=== PATIENT | male | born 1950 | race Caucasian/White ===

== ENCOUNTER → 2019-07-28 14:55 | Outpatient (BNVA) | payer MEDICARE, OTHER, SELFPAY | PROVIDERS: Family Provider Family Medicine; PCP Family Medicine; Visit Provider Internal Medicine Rheumatology | DX: M19.90 Unspecified osteoarthritis, unspecified site (principal); Z79.899 Other long term (current) drug therapy; Z11.59 Encounter for screening for other viral diseases; Z11.1 Encounter for screening for respiratory tuberculosis; M06.9 Rheumatoid arthritis, unspecified; Z79.52 Long term (current) use of systemic steroids; Z71.89 Other specified counseling | CPT/HCPCS: 36415; 80076; 82565; 84550; 85025; 85651; 86140; 86431; 86480; 86704; 86803; 86812; 87340; 99204 ==

== ENCOUNTER → 2019-07-28 16:20 | Outpatient (BNVA) | payer MEDICARE, OTHER, SELFPAY | PROVIDERS: Family Provider Family Medicine; PCP Family Medicine; Visit Provider Internal Medicine Rheumatology | DX: Z79.899 Other long term (current) drug therapy (principal); Z11.59 Encounter for screening for other viral diseases; M19.90 Unspecified osteoarthritis, unspecified site; Z71.89 Other specified counseling | CPT/HCPCS: 85025 ==

== ENCOUNTER 2019-07-29 12:59 | Outpatient (CLI) | payer MEDICARE, OTHER, SELFPAY ==
--- NOTE | 2019-07-29 13:05 | XR_ITS ---
WS: [id number] CHEST 2 VIEWS HISTORY: inflammatory arthritis COMPARISON: None available. Lungs: Clear with no abnormality. No pleural effusion or pneumothorax. Cardiac size: Normal. Mediastinum/Aorta: Normal mediastinum. Bones: Normal. XR/XR chest 2V* [id number] IMPRESSION: Normal chest.
--- NOTE | 2019-07-29 13:05 | XR_ITS ---
WS: [id number] LEFT FOOT: 3 VIEW(S) TECHNIQUE: PA, oblique and lateral. HISTORY: inflammatory arthritis COMPARISON: 10/20/2011 No acute fracture or dislocation. Mild narrowing of the first metatarsophalangeal joint. Erosions which are partially well-corticated a long the medial first metatarsal head. Small amount of adjacent overlying soft tissue. Erosions are n ew since the prior study. Additional erosion along the joint line of the first metatarsal head withou t being well-corticated. No additional metatarsal head erosions. Mild degenerative changes at the mid foot. Enthesopathy at the Achilles tendon. No soft tissue abnormality or bone destruction. XR/XR foot LT min 3V* [id number] IMPRESSION: 1. Medial first metatarsal head erosions. Consider gout. 2. Additional erosion along the joint line first metatarsal tarsal head may be rheumatoid arthritis.
--- NOTE | 2019-07-29 13:05 | XR_ITS ---
WS: [id number] RIGHT FOOT: 3 VIEW(S) TECHNIQUE: PA, oblique and lateral. HISTORY: inflammatory arthritis COMPARISON: None available. Mild narrowing of the first interphalangeal joint. Suspect very small early erosions along the joint surface of the first metatarsal head. Mild narrowing in the tarsal rows. Enthesopathy at the Achilles tendon. XR/XR foot RT min 3V* [id number] IMPRESSION: 1. Very tiny early erosions along the first metatarsal head. Favor inflammator y arthritis. 2. Mild degenerative changes in the tarsal rows.
--- NOTE | 2019-07-29 13:05 | XR_ITS ---
WS: [id number] LEFT HAND: 3 VIEW(S) TECHNIQUE: PA, oblique and lateral. HISTORY: inflammatory arthritis COMPARISON: None available. Diffuse interphalangeal joint space narrowing. Most significant changes involving the fifth PIP joint and the first IP joint. Bony hypertrophy with soft tissue thickening. There also may be some periost itis along with erosions which can be seen with psoriatic arthritis. No erosions at the metacarpal he ads. Mild narrowing of the first carpometacarpal joint. XR/XR hand LT min 3V* [id number] IMPRESSION: 1. Diffuse IP joint space narrowing, most significant at the fifth IP joint an d the first IP joint. There is adjacent periostitis along with soft tissue hype rtrophy. Periostitis can be seen with psoriatic arthritis. 2. Progression of IP joint degenerative changes.
--- NOTE | 2019-07-29 13:05 | XR_ITS ---
WS: [id number] RIGHT HAND: 3 VIEW(S) TECHNIQUE: PA, oblique and lateral. HISTORY: inflammatory arthritis COMPARISON: 10/06/2014 Diffuse narrowing of the interphalangeal joint spaces. Soft tissue swelling with erosions on both sides of the second PIP joint. There is mineralization in the soft tissues. Some of the erosions are well-corticated. Smaller erosions and joint space narrowin g with soft tissue edema at this fourth PIP joint. Advanced degenerative changes at the first carpometacarpal joint. No ulnar styloid erosion. XR/XR hand RT min 3V* [id number] IMPRESSION: 1. Most significant changes involving the second and fourth PIP joints. Soft t issue swelling with erosions and mineralization. Due to the demineralization an d the soft tissue changes consider gout as a possible etiology. Inflammatory ar thritis also within the differential. 2. Diffuse interphalangeal joint space narrowing and small erosions. Osteoarthritis first carpometacarpal joint.
== END 2019-07-29 13:00 | disposition home or self-care (01) ==
LOC: RADOUTREAD 13:04
PROVIDERS: Family Provider Family Medicine; PCP Family Medicine; Visit Provider Internal Medicine Rheumatology
DX: M79.89 Other specified soft tissue disorders (principal); M85.841 Other specified disorders of bone density and structure, right hand; M19.041 Primary osteoarthritis, right hand; M85.872 Other specified disorders of bone density and structure, left ankle and foot; M85.871 Other specified disorders of bone density and structure, right ankle and foot
CPT/HCPCS: 71046; 73130; 73630

== ENCOUNTER → 2019-08-05 15:52 | Outpatient (BNVA) | payer MEDICARE, OTHER, SELFPAY | PROVIDERS: Family Provider Family Medicine; PCP Family Medicine; Visit Provider Internal Medicine Rheumatology | DX: M1A.9XX1 Chronic gout, unspecified, with tophus (tophi) (principal); Z79.899 Other long term (current) drug therapy; D64.9 Anemia, unspecified | CPT/HCPCS: 99214 ==

== ENCOUNTER 2020-11-16 07:48 | Outpatient (RCR) | payer MEDICARE, OTHER, SELFPAY ==
[2020-11-15 13:25] LABS: Basophils # 0.1 10^3/uL (0.0-0.1); Basophils % 0.9 %; Eosinophils # 0.3 10^3/uL (0.0-0.8); Eosinophils % 3.3 %; Hematocrit 24.6 % (42.0-52.0); Hemoglobin 6.9 g/dL (11.7-16.6); Lymphocytes # 1.3 10^3/uL (0.8-4.8); Lymphocytes % 16.6 %; Mean Corpuscular Hemoglobin 18.6 pg (28.0-34.0); Mean Corpuscular Volume 66.5 fL (80-94); Mean Platelet Volume 8.8 fL (7.4-10.4); Monocytes # 1.1 10^3/uL (0.2-0.9); Monocytes % 14.2 %; Neutrophils # 4.84 10^3/uL (1.8-7.7); Neutrophils % 64.6 %; Nucleated Red Blood Cells % 0 %; Platelet Count 383 10^3/cmm (130-400); Red Cell Distribution Width 19.3 % (12.1-15.1); White Blood Count 7.5 10^3/uL (4.0-10.0)
[2020-11-15 13:52] LABS: Alanine Aminotransferase 7 U/L (0-41); Alkaline Phosphatase 50 IU/L (40-130); Anion Gap 14.3 (5-19); Aspartate Amino Transferase 12 U/L (0-40); Blood Urea Nitrogen 13 mg/dL (8-23); Calcium 8.9 mg/dL (8.5-10.5); Carbon Dioxide 24 mmol/L (22-29); Chloride 103 mmol/L (98-107); Globulin 2.7 g/dL (1.3-4.6); Glucose 94 mg/dL (65-115); Osmolality Calculated 286 mOsm/kg (285-295); Potassium 3.3 mmol/L (3.5-5.1); Sodium 138 mmol/L (136-145); Total Bilirubin 0.5 mg/dL (0.15-1.2); Total Protein 6.7 g/dL (6.6-8.7)
[2020-11-15 16:54] LABS: Ferritin 13 ng/mL (30-400); Iron 18 ug/dL (59-158); Percent Saturation 5.2 % (20-50); Total Iron Binding Capacity 344 mcg/dl; Unsaturated Iron Binding 326 ug/dL (112-347)
[2020-11-16 08:33] LABS: Basophils # 0.1 10^3/uL (0.0-0.1); Basophils % 1.1 %; Eosinophils # 0.3 10^3/uL (0.0-0.8); Eosinophils % 4.8 %; Hematocrit 25.5 % (42.0-52.0); Hemoglobin 7.1 g/dL (11.7-16.6); Lymphocytes % 15.9 %; Mean Corpuscular HGB Conc 27.8 g/dL (30.0-36.0); Mean Corpuscular Hemoglobin 18.4 pg (28.0-34.0); Mean Corpuscular Volume 66.1 fL (80-94); Mean Platelet Volume 9.3 fL (7.4-10.4); Monocytes # 0.6 10^3/uL (0.2-0.9); Monocytes % 9.8 %; Neutrophils # 4.22 10^3/uL (1.8-7.7); Neutrophils % 67.9 %; Nucleated Red Blood Cells % 0 %; Platelet Count 409 10^3/cmm (130-400); Red Blood Count 3.86 10^6/uL (4.1-5.3); Red Cell Distribution Width 19.2 % (12.1-15.1); White Blood Count 6.2 10^3/uL (4.0-10.0)
[2020-11-16 08:51] LABS: Alanine Aminotransferase 9 U/L (0-41); Alkaline Phosphatase 56 IU/L (40-130); Anion Gap 15.3 (5-19); Aspartate Amino Transferase 13 U/L (0-40); Blood Urea Nitrogen 12 mg/dL (8-23); Calcium 8.9 mg/dL (8.5-10.5); Carbon Dioxide 24 mmol/L (22-29); Chloride 102 mmol/L (98-107); Globulin 2.7 g/dL (1.3-4.6); Glucose 145 mg/dL (65-115); Osmolality Calculated 288 mOsm/kg (285-295); Potassium 3.3 mmol/L (3.5-5.1); Sodium 138 mmol/L (136-145); Total Bilirubin 0.3 mg/dL (0.15-1.2); Total Protein 6.7 g/dL (6.6-8.7)
[2020-11-16] MEDS: diphenhydrAMINE 25 mg Capsule PO (10:30)
[2020-11-16] MEDS: acetaminophen 325 mg Tablet 650 MG PO (10:30)
[2020-11-16] MEDS: sodium chloride 0.9% 250 ML 999 ML IV (10:30)
[2020-11-16 13:30] VITALS: BP 123/60; PULSE 53; RESP 18; TEMP 36.3; O2SAT 95
[2020-11-16] MEDS: FUROsemide 10 mg/mL SDV 2mL 20 MG IV (13:30)
[2020-11-16] MEDS: ferric carboxy (IVPB) 750 MG in sodium chloride 0.9% (100 ml) 100 ML 345 MG IV (15:15)
--- NOTE | 2020-11-18 07:44 | ONC FU_ITS ---
Dr. Rodrigez Patient Follow-Up Note Patient: Atul Swain Unit #: [id number]: 1950 Dicatated By: Aftab Rodrigez M.D.Date of Visit:November 16, 2020 Onc Med Follow-up/Prog Note Chief Complaint: Anemia. History of Present Illness: This is a 70 year-old man with iron deficiency anemia. He has hypertension and degenerative arthritis. He has been in pretty good general health. Sometime over the summer began having fatigue and exertional dyspnea. He had a follow-up visit with Dr. Palma in March and his CBC at that time showed moderately severe anemia with hemoglobin 9.1 g and hematocrit 31.1%. The red cell indices were hypochromic/microcytic. The white blood cell count was normal at 8400 and the platelet count was mildly elevated at 520,000. The serum iron studies showed low transferrin saturation at 5% and the ferritin was low at 15 ng/mL, consistent with iron deficiency. He started Protonix 40 mg daily, and he also started oral iron supplementation with ferrous sulfate 325 mg daily. A repeat CBC on 05/06/2018 showed similar findings of hemoglobin 9.4 g and hematocrit 32.9%. The transferrin saturation was still low at 5%. I had seen him initially on 06/13/2018. As he had not shown any significant response to oral iron supplementation, he was given parenteral iron replacement with infusions of Injectafer on 06/13/2018 and on 06/20/2018. He had a good clinical response. At his follow-up visit in June 2018 his hemoglobin was up to 12.3 g with transferrin saturation 30.4% and ferritin 320 ng/mL. At that point he was advised to continue his regular follow-up with Dr. Palma. His other medical illnesses include hypertension, GERD, and degenerative arthritis. He has a history of hyperglycemia. He also has anxiety/depression. He is a non-smoker. He is seen for a follow-up visit. He had a repeat CBC done by Dr. Palma yesterday and his hemoglobin was very low at 6.9 g with hypochromic/microcytic red cell indices. The transferrin saturation was low at 5.2% and the ferritin was low at 13 ng/mL, consistent with iron deficiency. He has been feeling very tired for at least several weeks. He also has been short of breath, he has had limited activity tolerance. His ECOG score is 1. His appetite is not very good, but his weight has been stable. He does not have fever or night sweats. He does not complain of cough and he has not been having chest pain. His acid reflux is adequately managed with medication. He colonel he has no GI complaints. His previous evaluation for iron deficiency anemia did include EGD and colonoscopy, which were unrevealing. He does complain of increased urinary frequency and nocturia. He has arthritis, especially in his hands, but that is no worse. He does not complain of headache. He sometimes has numbness/tingling in his fingers. He says his anxiety/depression has been a little worse this past year. Medications: Escitalopram Oxalate (10 mg) Tablet Oral daily, Lisinopril 1 Tablet (of 10 mg) Oral daily, Lisinopril-Hydrochlorothiazide 1 Tablet (of 20-25 mg) Oral daily, Pantoprazole Sodium 1 Tablet (of 40 mg) Tablet, enteric coated Oral daily, predniSONE (10 mg) Tablet Oral daily PRN Allergies: Sulfa Antibiotics Vital Signs: Performed on November 16, 2020 10:54 Height - 74.00 in Weight - 177.6 lbs (LOW) BSA - 2.07 sq.m BMI - 22.80 Temperature - 97.2 F (LOW) Pulse - 77 /min Respiration - 18 /min BP - 144/65 mm(hg) (HIGH) O2 Sat - 96 % Pain - 0 Fatigue - 5 Physical Examination: Constitutional - He appears somewhat weak generally, Eyes - Sclerae nonicteric. Conjunctivae clear, ENMT - No lesions noted in the oral cavity, Hematologic/Lymphatic - No cervical, clavicular, or axillary adenopathy, Respiratory - Lungs are clear with good air movement bilaterally, Cardiovascular - Heart rhythm is regular. There is no murmur, gallop, or rub noted, Abdomen - Soft. Liver and spleen are not enlarged. There is no abdominal mass or ascites noted and there is no inguinal adenopathy, Extremities - No edema. There are purpuric lesions on both arms, Neurologic - No focal neurologic deficits noted. Lab/Imaging: Test performed on November 16, 2020 08:08 Sodium 138 mmol/L Potassium 3.3 mmol/L Chloride 102 mmol/L CO2 24 mmol/L Anion Gap 15.3 BUN 12 mg/dL Creatinine 1.1 mg/dL Cr Clearance (Est) 70.18 mL/min Glucose 145 mg/dL Osmolality - Calculated 288 mOsm/kg Calcium 8.9 mg/dL Protein, Total 6.7 g/dL Albumin 4.0 g/dL Globulin 2.7 g/dL Bilirubin, Total 0.3 mg/dL ALT (SGPT) 9 U/L AST (SGOT) 13 U/L Alkaline Phosphatase 56 IU/L WBC 6.2 10 3/uL RBC 3.86 10 6/uL HGB 7.1 g/dL HCT 25.5 % MCV 66.1 fL MCH 18.4 pg MCHC 27.8 g/dL RDW 19.2 % Platelet Count 409 10 3/cmm MPV 9.3 fL Neutrophils 4.22 10 3/uL Lymphocytes 1.0 10 3/uL Monocytes 0.6 10 3/uL Eosinophils 0.3 10 3/uL Basophils 0.1 10 3/uL Neutrophil % 67.9 % Lymphocyte % 15.9 % Monocyte % 9.8 % Eosinophil % 4.8 % Basophils % 1.1 % NRBC % 0 % Problem List: 1. Recurrent iron deficiency anemia. 2. Hypertension. 3. GERD. 4. Degenerative arthritis. 5. He has a history of hyperglycemia. 6. Anxiety/depression. Problems Addressed with this Encounter and Plan: Patient with recurrent iron deficiency anemia. The cause is uncertain, but his previous GI evaluation showed no evidence for GI blood loss and has had anemia previously been refractory to oral iron supplementation.. As such, it may just be due to inadequate oral iron absorption. He is now significantly symptomatic, so he will be transfused 2 units PRBC. He will then be given further parenteral iron replacement with 2 additional infusions of Injectafer. He will be scheduled for 1-month interval follow-up. In the meantime, I also will have him repeat his stool FIT. Signed By: Aftab Rodrigez M.D. <<Signature on File>>
== END 2020-11-22 23:59 | disposition home or self-care (01) ==
LOC: ONCMED 07:48
PROVIDERS: PCP Family Medicine; Visit Provider Internal Medicine Medical Oncology
DX: D50.9 Iron deficiency anemia, unspecified (principal); I10 Essential (primary) hypertension; K21.9 Gastro-esophageal reflux disease without esophagitis; M19.90 Unspecified osteoarthritis, unspecified site; R73.9 Hyperglycemia, unspecified; F41.9 Anxiety disorder, unspecified; F32.9 Major depressive disorder, single episode, unspecified; Z79.899 Other long term (current) drug therapy
CPT/HCPCS: 36430; 80053; 82728; 83540; 83550; 85025; 86850; 86900; 86920; 96365; 99214; J1439; J1940; J7050; P9016

== ENCOUNTER 2020-11-23 06:49 | Outpatient (RCR) | payer MEDICARE, OTHER, SELFPAY ==
[2020-11-23] MEDS: ferric carboxy (IVPB) 750 MG in sodium chloride 0.9% (100 ml) 100 ML 460 MG IV (13:24)
== END 2020-12-22 23:59 | disposition home or self-care (01) ==
LOC: ONCMED 06:49
PROVIDERS: PCP Family Medicine; Visit Provider Internal Medicine Medical Oncology
DX: D50.9 Iron deficiency anemia, unspecified (principal)
CPT/HCPCS: 96365; J1439

== ENCOUNTER 2020-12-23 05:58 | Outpatient (RCR) | payer MEDICARE, OTHER, SELFPAY ==
[2020-12-23 14:00] LABS: Basophils # 0.1 10^3/uL (0.0-0.1); Basophils % 1.1 %; Eosinophils # 0.3 10^3/uL (0.0-0.8); Eosinophils % 4.2 %; Hematocrit 38.4 % (42.0-52.0); Hemoglobin 12.4 g/dL (11.7-16.6); Lymphocytes # 1.1 10^3/uL (0.8-4.8); Lymphocytes % 15.5 %; Mean Corpuscular HGB Conc 32.3 g/dL (30.0-36.0); Mean Corpuscular Volume 80.5 fL (80-94); Mean Platelet Volume 10.3 fL (7.4-10.4); Monocytes # 0.7 10^3/uL (0.2-0.9); Monocytes % 9.6 %; Neutrophils # 4.92 10^3/uL (1.8-7.7); Neutrophils % 69.5 %; Nucleated Red Blood Cells % 0 %; Platelet Count 287 10^3/cmm (130-400); Positive M 1; Red Blood Count 4.77 10^6/uL (4.1-5.3); White Blood Count 7.1 10^3/uL (4.0-10.0)
[2020-12-23 14:17] LABS: Ferritin 590 ng/mL (30-400); Iron 51 ug/dL (59-158); Percent Saturation 25.1 % (20-50); Total Iron Binding Capacity 203 mcg/dl; Unsaturated Iron Binding 152 ug/dL (112-347)
[2020-12-23 14:51] LABS: Folate Level 12.3 ng/mL (4.5-32.2)
[2020-12-23 14:59] LABS: Slide Review Slide Review Perform
--- NOTE | 2020-12-23 15:57 | ONC FU_ITS ---
Dr. Rodrigez Patient Follow-Up Note Patient: Atul Swain Unit #: [id number]: 1950 Dicatated By: Aftab Rodrigez M.D.Date of Visit:Dec 23, 2020 Onc Med Follow-up/Prog Note Chief Complaint: Anemia. History of Present Illness: This is a 70 year-old man with iron deficiency anemia. He has hypertension and degenerative arthritis. He has been in pretty good general health. Sometime over the summer began having fatigue and exertional dyspnea. He had a follow-up visit with Dr. Palma in March and his CBC at that time showed moderately severe anemia with hemoglobin 9.1 g and hematocrit 31.1%. The red cell indices were hypochromic/microcytic. The white blood cell count was normal at 8400 and the platelet count was mildly elevated at 520,000. The serum iron studies showed low transferrin saturation at 5% and the ferritin was low at 15 ng/mL, consistent with iron deficiency. He started Protonix 40 mg daily, and he also started oral iron supplementation with ferrous sulfate 325 mg daily. A repeat CBC on 05/06/2018 showed similar findings of hemoglobin 9.4 g and hematocrit 32.9%. The transferrin saturation was still low at 5%. I had seen him initially on 06/13/2018. As he had not shown any significant response to oral iron supplementation, he was given parenteral iron replacement with infusions of Injectafer on 06/13/2018 and on 06/20/2018. He had a good clinical response. At his follow-up visit in June 2018 his hemoglobin was up to 12.3 g with transferrin saturation 30.4% and ferritin 320 ng/mL. At that point he was advised to continue his regular follow-up with Dr. Palma. His other medical illnesses include hypertension, GERD, and degenerative arthritis. He has a history of hyperglycemia. He also has anxiety/depression. He is a non-smoker. INTERIM HISTORY: He was seen for a follow-up visit here on 11/16/2020. On a CBC done by Dr. Palma a day earlier his hemoglobin was very low at 6.9 g with hypochromic/microcytic red cell indices. The transferrin saturation was low at 5.2% and the ferritin was low at 13 ng/mL, consistent with iron deficiency. He had been feeling very tired for at least several weeks. He also had been short of breath, he had had limited activity tolerance. As in the past his anemia had not corrected with oral iron, he was given parenteral iron replacement with 2 infusions of Injectafer. He tolerated these well. He is seen now for a follow-up visit. He is feeling much better. His energy/activity tolerance have improved significantly. His ECOG score is zero. His appetite is okay, though not like it used to be. He does not have fever or night sweats. His breathing is much better now. He does not complain of shortness of breath, cough, or chest pain. He has no GI or complaints. He does have some arthritis in his hands. He does not complain of headaches, and his dizziness is also better. He has no focal neurologic symptoms. Medications: Escitalopram Oxalate (10 mg) Tablet Oral daily, Lisinopril 1 Tablet (of 10 mg) Oral daily, Lisinopril-Hydrochlorothiazide 1 Tablet (of 20-25 mg) Oral daily, Pantoprazole Sodium 1 Tablet (of 40 mg) Tablet, enteric coated Oral daily, predniSONE (10 mg) Tablet Oral daily PRN Allergies: Sulfa Antibiotics Vital Signs: Performed on Dec 23, 2020 15:00 Height - 74.00 in Weight - 173.4 lbs (LOW) BSA - 2.05 sq.m BMI - 22.26 Temperature - 97.6 F (LOW) Pulse - 64 /min Respiration - 18 /min BP - 141/70 mm(hg) (HIGH) O2 Sat - 99 % Pain - 0 Fatigue - 0 Physical Examination: Constitutional - He looks good generally, Eyes - Sclerae nonicteric. Conjunctivae clear, ENMT - No lesions noted in the oral cavity, Hematologic/Lymphatic - No cervical, clavicular, or axillary adenopathy, Respiratory - Lungs are clear with good air movement bilaterally, Cardiovascular - Heart rhythm is regular. There is no murmur, gallop, or rub noted, Abdomen - Soft. Liver and spleen are not enlarged. There is no abdominal mass or ascites noted and there is no inguinal adenopathy, Extremities - No edema. Lab/Imaging: Test performed on Dec 23, 2020 12:58 Ferritin 590 ng/mL Folate, Serum 12.3 ng/mL Iron 51 mcg/dL Iron Binding Capacity (TIBC) 203 mcg/dl % Iron Saturation 25.1 % UIBC 152 mcg/dL WBC 7.1 10 3/uL RBC 4.77 10 6/uL HGB 12.4 g/dL HCT 38.4 % MCV 80.5 fL MCH 26.0 pg MCHC 32.3 g/dL Platelet Count 287 10 3/cmm MPV 10.3 fL Neutrophils 4.92 10 3/uL Lymphocytes 1.1 10 3/uL Monocytes 0.7 10 3/uL Eosinophils 0.3 10 3/uL Basophils 0.1 10 3/uL Neutrophil % 69.5 % Lymphocyte % 15.5 % Monocyte % 9.6 % Eosinophil % 4.2 % Basophils % 1.1 % NRBC % 0 % CBC Slide Review Slide Review Perform Problem List: 1. Recurrent iron deficiency anemia. 2. Hypertension. 3. GERD. 4. Degenerative arthritis. 5. He has a history of hyperglycemia. 6. Anxiety/depression. Problems Addressed with this Encounter and Plan: Patient with recurrent iron deficiency anemia. A specific cause was not determined, but as his previous GI evaluation showed no evidence for GI blood loss and the anemia had previously been refractory to oral iron supplementation, inadequate oral iron absorption was suspected. At his follow-up visit on 11/16/2020 he was significantly symptomatic, and he was transfused PRBC. He was then given parenteral iron replacement with 2 infusions of Injectafer. He has had a very good clinical response. He will now continue his regular follow-up with Dr. Palma. I would recommend rechecking blood counts at least every 3 to 6 months. I will see him here again as needed. Signed By: Aftab Rodrigez M.D. <<Signature on File>>
== END 2021-01-22 23:59 | disposition home or self-care (01) ==
LOC: ONCMED 05:58
PROVIDERS: PCP Family Medicine; Visit Provider Internal Medicine Medical Oncology
DX: D50.9 Iron deficiency anemia, unspecified (principal); I10 Essential (primary) hypertension; K21.9 Gastro-esophageal reflux disease without esophagitis; M19.90 Unspecified osteoarthritis, unspecified site; R73.9 Hyperglycemia, unspecified; F41.9 Anxiety disorder, unspecified; F32.9 Major depressive disorder, single episode, unspecified; Z79.899 Other long term (current) drug therapy
CPT/HCPCS: 36415; 82728; 82746; 83540; 83550; 85025; G0463

== ENCOUNTER → 2022-02-08 09:39 | Outpatient (BNVA) | payer MEDICARE, OTHER, SELFPAY | PROVIDERS: PCP Family Medicine; Visit Provider Family Medicine | DX: I10 Essential (primary) hypertension (principal); M19.90 Unspecified osteoarthritis, unspecified site | CPT/HCPCS: 80053; 80061; 82607; 84443; 85025 ==

== ENCOUNTER → 2022-10-03 10:10 | Outpatient (BNVA) | payer MEDICARE, OTHER, SELFPAY | PROVIDERS: PCP Family Medicine; Visit Provider Family Medicine | DX: I10 Essential (primary) hypertension (principal); M1A.9XX1 Chronic gout, unspecified, with tophus (tophi); M19.90 Unspecified osteoarthritis, unspecified site; E79.0 Hyperuricemia without signs of inflammatory arthritis and tophaceous disease; Z79.899 Other long term (current) drug therapy | CPT/HCPCS: 80053; 82728; 83540; 84550; 85025 ==

== ENCOUNTER → 2023-02-01 09:23 | Outpatient (BNVA) | payer MEDICARE, OTHER, SELFPAY | PROVIDERS: PCP Family Medicine; Visit Provider Family Medicine | DX: M1A.9XX1 Chronic gout, unspecified, with tophus (tophi) (principal); E79.0 Hyperuricemia without signs of inflammatory arthritis and tophaceous disease; E61.1 Iron deficiency | CPT/HCPCS: 83540; 84550; 85025 ==

== ENCOUNTER → 2023-08-23 08:42 | Outpatient (BNVA) | payer MEDICARE, OTHER, SELFPAY | PROVIDERS: PCP Family Medicine; Visit Provider Family Medicine | DX: R53.83 Other fatigue (principal); R06.00 Dyspnea, unspecified; E61.1 Iron deficiency; M19.90 Unspecified osteoarthritis, unspecified site; E79.0 Hyperuricemia without signs of inflammatory arthritis and tophaceous disease; L98.9 Disorder of the skin and subcutaneous tissue, unspecified; E03.9 Hypothyroidism, unspecified; E55.9 Vitamin D deficiency, unspecified | CPT/HCPCS: 71046; 80053; 82607; 82652; 83540; 84443; 85025 ==

== ENCOUNTER → 2023-09-21 07:54 | Outpatient (BNVA) | payer MEDICARE, OTHER, SELFPAY | PROVIDERS: PCP Family Medicine; Referring Provider Family Medicine; Visit Provider Nurse Practitioner Family | DX: L30.9 Dermatitis, unspecified (principal); D48.5 Neoplasm of uncertain behavior of skin; L30.0 Nummular dermatitis; L57.0 Actinic keratosis; L56.8 Other specified acute skin changes due to ultraviolet radiation; D22.5 Melanocytic nevi of trunk; D23.122 Other benign neoplasm of skin of left lower eyelid, including canthus | CPT/HCPCS: 11104; 17000; 99204 ==

== ENCOUNTER → 2023-10-02 07:57 | Outpatient (BNVA) | payer MEDICARE, OTHER, SELFPAY | PROVIDERS: PCP Family Medicine; Visit Provider Nurse Practitioner Family | DX: Z48.02 Encounter for removal of sutures (principal) | CPT/HCPCS: 99212 ==

== ENCOUNTER 2023-10-19 11:18 | Oncology outpatient (recurring) (ONCR) | payer MEDICARE, OTHER, SELFPAY ==
[2023-10-19 12:29] LABS: Basophils # 0.1 10^3/uL (0.0-0.1); Basophils % 0.5 %; Eosinophils # 0.1 10^3/uL (0.0-0.8); Eosinophils % 1.2 %; Hematocrit 33.7 % (37-53); Lymphocytes # 1.3 10^3/uL (0.8-4.8); Lymphocytes % 11.2 %; Mean Corpuscular HGB Conc 30.3 g/dL (30-55); Mean Corpuscular Hemoglobin 22.4 pg (27-33); Mean Corpuscular Volume 74.1 fl (82-101); Mean Platelet Volume 9.3 fL (7.4-10.4); Monocytes # 1.4 10^3/uL (0.2-0.9); Neutrophils # 8.57 10^3/uL (1.8-7.7); Neutrophils % 74.8 %; Nucleated Red Blood Cells % 0 %; Platelet Count 477 10^3/cmm (157-399); Red Blood Count 4.55 10^6/uL (3.85-5.65); Reticulocyte % 1.5 % (0.5-2.0); White Blood Count 11.46 10^3/uL (3.29-11.43)
[2023-10-19 12:50] LABS: Alanine Aminotransferase 13 U/L (0-41); Albumin Level 3.9 g/dL (3.5-5.2); Alkaline Phosphatase 52 U/L (40-130); Anion Gap 11.8 (5-19); Aspartate Amino Transferase 15 U/L (0-40); Blood Urea Nitrogen 15 mg/dL (8-23); Carbon Dioxide 27 mmol/L (22-29); Chloride 100 mmol/L (98-107); Creatinine Clr Calc Pharmacy 83.9125; Ferritin 14 ng/mL (30-400); Globulin 2.6 g/dL (1.3-4.6); Glucose 94 mg/dL (65-115); Iron 16 ug/dL (59-158); Osmolality Calculated 281 mOsm/kg (285-295); Percent Saturation 4.9 % (20-50); Potassium 3.8 mmol/L (3.5-5.1); Sodium 135 mmol/L (136-145); Total Bilirubin 0.3 mg/dL (0.15-1.2); Total Iron Binding Capacity 325 mcg/dl; Total Protein 6.5 g/dL (6.6-8.7); Unsaturated Iron Binding 309 ug/dL (112-347)
[2023-10-19 13:04] LABS: Vitamin B12 788 pg/mL (232-1245)
[2023-10-19 13:21] LABS: Folate Level 13.3 ng/mL (4.5-32.2)
== END 2023-10-23 23:59 | disposition home or self-care (01) ==
PROVIDERS: PCP Family Medicine; Visit Provider Internal Medicine Hematology & Oncology
DX: E61.1 Iron deficiency (principal); E53.8 Deficiency of other specified B group vitamins; Z79.899 Other long term (current) drug therapy; R53.83 Other fatigue; Z53.9 Procedure and treatment not carried out, unspecified reason
CPT/HCPCS: 36415; 80053; 82607; 82728; 82746; 83540; 83550; 85025; 85045; 99204

== ENCOUNTER 2023-11-05 14:47 | Oncology outpatient (recurring) (ONCR) | payer MEDICARE, OTHER, SELFPAY ==
--- NOTE | 2023-11-05 15:00 | US_ITS ---
WS: [id number] ULTRASOUND SOFT TISSUES cervical lymph nodes. HISTORY: swollen lymph node COMPARISON: None available. TECHNIQUE: 2-D and color Doppler imaging is submitted. Image quality is suboptimal. The imaging parameters are not optimal to evaluate the internal architec ture of the lymph nodes. Suggest repeat ultrasound imaging with better attention to detail. Some of the lymph nodes do appear abnormal within the cervical chain. RIGHT cervical chain lymph node demonstrates asymmetric thickening of the cortex. Loss of the normal hilum. This lymph node is not s ignificantly enlarged enlarged measuring only 1.6 x 0.6 x 1.2 cm. There is an additional hypoechoic mass along the LEFT cervical chain but the quality of imaging is in sufficient to demonstrate if this is an lymph node or not. US/US soft tissue head neck [id number] IMPRESSION: 1. Suboptimal imaging technique of the cervical chain lymph nodes. There is a RIGHT cervical chain lymph node that does appear abnormal. Possible LEFT cervic al chain abnormal lymph node. 2. Suggest follow-up neck CT with IV contrast or repeat ultrasound imaging of the cervical lymph nodes with more optimal imaging technique.
== END 2023-11-23 23:59 | disposition home or self-care (01) ==
LOC: RAD 14:48 → ONCMED 11-12 15:14
PROVIDERS: PCP Family Medicine; Visit Provider Internal Medicine Hematology & Oncology
DX: Z53.9 Procedure and treatment not carried out, unspecified reason (principal); R53.83 Other fatigue; R59.0 Localized enlarged lymph nodes
CPT/HCPCS: 76536

== ENCOUNTER 2023-12-21 08:30 | Oncology outpatient (recurring) (ONCR) | payer MEDICARE, OTHER, SELFPAY ==
--- NOTE | 2023-12-06 12:00 | CT_ITS ---
WS: [id number] CT NECK TECHNIQUE: Contrast-enhanced CT of the neck with coronal and sagittal reformatted images. CLINICAL INFORMATION: suggested follow up neck CT per US soft tissue head and neck COMPARISON: Ultrasound 11/05/2023 DLP: 164.[address] scans at [facility] use at least one of these dose optimization techniques: automated e xposure control; mA and/or kV adjustment per patient size (includes targeted exams where dose is matc hed to clinical indication); or iterative reconstruction. FINDINGS: Paranasal sinuses and mastoid air cells are well aerated. Normal posterior nasopharynx. Normal paraph aryngeal fat. Small retention cyst or polyp RIGHT maxillary sinus measuring 1.1 cm. Small retention c yst or polyps in the RIGHT inferior maxillary sinus. Moderate spondylitic changes cervical spine with disc osteophyte complexes worse at C5-C6 and C6-C7 w ith mild central canal stenosis. Normal partially visualized intracranial contents. Normal posterior nasopharynx. No evidence of supraglottic or glottic mass. Normal subglottic airway. Multinodular LEFT greater than RIGHT thyroid. This can be followed up with ultrasound. Lung apices ar e well aerated. Normal submandibular glands. Cavernous carotid calcification. Normal RIGHT parotid gland. Heterogeneo usly enhancing ovoid nodule along the deep tail of the LEFT parotid gland abutting the sternocleidoma stoid. This is suspicious for necrotic lymph node or exophytic parotid nodule. This measures approxim ately 2.2 x 1.5 cm. This directly abuts the external jugular vein. Enlarged abnormal-appearing lymph node along the tail RIGHT parotid gland measuring 10 mm. Above nodu les likely correspond to the previously described ultrasound findings. There are few small partially visualized thoracic inlet and mediastinal lymph nodes. CT/CT neck w con* [id number] IMPRESSION: 1. Heterogeneously enhancing low-attenuation nodule along the tail of the LEFT parotid gland suspicious for enlarged lymph node or less likely parotid nodule . This has an abnormal appearance. In addition slightly enlarged RIGHT periparo tid lymph node measuring 10 mm. Recommend correlation with history of neoplasm and consider further evaluation with PET/CT to evaluate for occult head and nec k malignancy or metastatic disease. 2. Multinodular thyroid. Recommend ultrasound thyroid in further evaluation. 3. No evidence of supraglottic or glottic mass visualized. 4. No other acute findings.
[2023-12-06] MEDS: iohexol 350 mg/mL 500 mL Btl (per mL) IV (12:34)
[2023-12-11 08:59] LABS: Basophils # 0.1 10^3/uL (0.0-0.1); Eosinophils # 0.3 10^3/uL (0.0-0.8); Eosinophils % 3.5 %; Lymphocytes # 1.1 10^3/uL (0.8-4.8); Lymphocytes % 14.1 %; Mean Corpuscular HGB Conc 31.6 g/dL (30-55); Mean Corpuscular Hemoglobin 25.7 pg (27-33); Mean Corpuscular Volume 81.1 fl (82-101); Mean Platelet Volume 9.4 fL (7.4-10.4); Monocytes # 0.9 10^3/uL (0.2-0.9); Monocytes % 10.9 %; Neutrophils # 5.69 10^3/uL (1.8-7.7); Neutrophils % 70.4 %; Nucleated Red Blood Cells % 0 %; Platelet Count 328 10^3/cmm (157-399); Red Blood Count 4.56 10^6/uL (3.85-5.65); Red Cell Distribution Width 21.6 % (12.1-15.1); White Blood Count 8.08 10^3/uL (3.29-11.43)
[2023-12-11 09:00] LABS: Reticulocyte % 1.5 % (0.5-2.0)
[2023-12-11 09:25] LABS: Alanine Aminotransferase 12 U/L (0-41); Albumin Level 3.8 g/dL (3.5-5.2); Alkaline Phosphatase 48 U/L (40-130); Anion Gap 14.6 (5-19); Aspartate Amino Transferase 17 U/L (0-40); Blood Urea Nitrogen 16 mg/dL (8-23); Carbon Dioxide 24 mmol/L (22-29); Chloride 101 mmol/L (98-107); Ferritin 39 ng/mL (30-400); Globulin 2.8 g/dL (1.3-4.6); Glucose 106 mg/dL (65-115); Iron 41 ug/dL (59-158); Osmolality Calculated 284 mOsm/kg (285-295); Percent Saturation 15.2 % (20-50); Potassium 3.6 mmol/L (3.5-5.1); Sodium 136 mmol/L (136-145); Total Bilirubin 0.4 mg/dL (0.15-1.2); Total Iron Binding Capacity 268 mcg/dl; Total Protein 6.6 g/dL (6.6-8.7); Unsaturated Iron Binding 227 ug/dL (112-347)
[2023-12-11 09:36] LABS: Vitamin B12 833 pg/mL (232-1245)
[2023-12-11 10:07] LABS: Folate Level 11.8 ng/mL (4.5-32.2)
[2023-12-13 11:20] VITALS: BP 128/78; PULSE 64; RESP 18; TEMP 36.6; O2SAT 97
[2023-12-21 08:29] VITALS: BP 124/74; PULSE 63; RESP 16; O2SAT 98
[2023-12-21] MEDS: sodium chloride 0.9% 250 ML 75 ML IV (08:38)
[2023-12-21] MEDS: ferric carboxy (PYXIS) 750 MG in sodium chloride 0.9% (100 ml) 100 ML 345 MG IV (08:39)
== END 2023-12-23 23:59 | disposition home or self-care (01) ==
PROVIDERS: Internal Medicine; PCP Family Medicine; Visit Provider Internal Medicine Hematology & Oncology
DX: D50.8 Other iron deficiency anemias (principal); Z53.9 Procedure and treatment not carried out, unspecified reason
CPT/HCPCS: 36415; 70491; 80053; 82607; 82728; 82746; 83540; 83550; 85025; 85045; 96365; 99214; J1439; J7050; Q9967

== ENCOUNTER 2023-12-31 08:18 | Oncology outpatient (recurring) (ONCR) | payer MEDICARE, OTHER, SELFPAY ==
[2023-12-31] MEDS: ferric carboxy (PYXIS) 750 MG in sodium chloride 0.9% (100 ml) 100 ML 345 MG IV (09:17)
[2023-12-31 09:55] VITALS: BP 124/68; PULSE 56; RESP 17; TEMP 36.5; O2SAT 98
== END 2024-01-23 23:59 | disposition home or self-care (01) ==
LOC: ONCMED 08:19
PROVIDERS: PCP Family Medicine; Visit Provider Internal Medicine Hematology & Oncology
DX: D50.8 Other iron deficiency anemias
CPT/HCPCS: 96365; J1439

== ENCOUNTER 2024-01-30 12:37 | Oncology outpatient (recurring) (ONCR) | payer MEDICARE, OTHER, SELFPAY ==
[2024-01-30 12:54] LABS: Basophils # 0.1 10^3/uL (0.0-0.1); Basophils % 0.7 %; Eosinophils # 0.2 10^3/uL (0.0-0.8); Eosinophils % 1.6 %; Hematocrit 40.9 % (37-53); Lymphocytes # 1.4 10^3/uL (0.8-4.8); Mean Corpuscular HGB Conc 33.7 g/dL (30-55); Mean Corpuscular Hemoglobin 29.4 pg (27-33); Mean Corpuscular Volume 87.2 fl (82-101); Mean Platelet Volume 9.5 fL (7.4-10.4); Monocytes # 1.2 10^3/uL (0.2-0.9); Neutrophils # 10.77 10^3/uL (1.8-7.7); Neutrophils % 78.3 %; Nucleated Red Blood Cells % 0 %; Platelet Count 301 10^3/cmm (157-399); Red Blood Count 4.69 10^6/uL (3.85-5.65); Red Cell Distribution Width 18.9 % (12.1-15.1); White Blood Count 13.75 10^3/uL (3.29-11.43)
[2024-01-30 13:12] LABS: Alanine Aminotransferase 15 U/L (0-41); Alkaline Phosphatase 63 U/L (40-130); Anion Gap 16.6 (5-19); Aspartate Amino Transferase 15 U/L (0-40); Blood Urea Nitrogen 19 mg/dL (8-23); Calcium 8.9 mg/dL (8.5-10.5); Carbon Dioxide 22 mmol/L (22-29); Chloride 100 mmol/L (98-107); Ferritin 588 ng/mL (30-400); Globulin 2.5 g/dL (1.3-4.6); Glucose 143 mg/dL (65-115); Iron 67 ug/dL (59-158); Osmolality Calculated 285 mOsm/kg (285-295); Percent Saturation 31.4 % (20-50); Potassium 3.6 mmol/L (3.5-5.1); Sodium 135 mmol/L (136-145); Total Bilirubin 0.3 mg/dL (0.15-1.2); Total Iron Binding Capacity 213 mcg/dl; Total Protein 6.5 g/dL (6.6-8.7); Unsaturated Iron Binding 146 ug/dL (112-347)
== END 2024-02-23 23:59 | disposition home or self-care (01) ==
PROVIDERS: Internal Medicine Medical Oncology; PCP Family Medicine; Visit Provider Internal Medicine Hematology & Oncology
DX: D50.8 Other iron deficiency anemias (principal)
CPT/HCPCS: 36415; 80053; 82728; 83540; 83550; 85025; 99214

== ENCOUNTER 2024-03-31 12:42 | Oncology outpatient (recurring) (ONCR) | payer MEDICARE, OTHER, SELFPAY ==
[2024-03-31 13:12] LABS: Basophils # 0.1 10^3/uL (0.0-0.1); Basophils % 0.4 %; Eosinophils # 0.1 10^3/uL (0.0-0.8); Eosinophils % 0.5 %; Hematocrit 41.8 % (37-53); Lymphocytes # 1.1 10^3/uL (0.8-4.8); Lymphocytes % 8.3 %; Mean Corpuscular HGB Conc 34.2 g/dL (30-55); Mean Corpuscular Hemoglobin 31.2 pg (27-33); Mean Corpuscular Volume 91.3 fl (82-101); Mean Platelet Volume 9.4 fL (7.4-10.4); Monocytes # 0.9 10^3/uL (0.2-0.9); Monocytes % 6.4 %; Neutrophils # 11.36 10^3/uL (1.8-7.7); Nucleated Red Blood Cells % 0 %; Platelet Count 336 10^3/cmm (157-399); Red Blood Count 4.58 10^6/uL (3.85-5.65); Red Cell Distribution Width 14.7 % (12.1-15.1); White Blood Count 13.54 10^3/uL (3.29-11.43)
[2024-03-31 13:35] LABS: Alanine Aminotransferase 18 U/L (0-41); Albumin Level 3.8 g/dL (3.5-5.2); Alkaline Phosphatase 126 U/L (40-130); Anion Gap 13.2 (5-19); Aspartate Amino Transferase 16 U/L (0-40); Blood Urea Nitrogen 16 mg/dL (8-23); Calcium 8.9 mg/dL (8.5-10.5); Carbon Dioxide 23 mmol/L (22-29); Chloride 101 mmol/L (98-107); Ferritin 349 ng/mL (30-400); Globulin 2.9 g/dL (1.3-4.6); Glucose 148 mg/dL (65-115); Iron 61 ug/dL (59-158); Osmolality Calculated 282 mOsm/kg (285-295); Percent Saturation 25.1 % (20-50); Potassium 3.2 mmol/L (3.5-5.1); Sodium 134 mmol/L (136-145); Total Bilirubin 0.6 mg/dL (0.15-1.2); Total Iron Binding Capacity 243 mcg/dl; Total Protein 6.7 g/dL (6.6-8.7); Unsaturated Iron Binding 182 ug/dL (112-347)
[2024-03-31 16:52] LABS: Magnesium 1.7 mg/dL (1.7-2.3)
== END 2024-04-24 23:59 | disposition home or self-care (01) ==
PROVIDERS: Nurse Practitioner Family; PCP Family Medicine; Visit Provider Internal Medicine Hematology & Oncology
DX: D50.8 Other iron deficiency anemias (principal)
CPT/HCPCS: 36415; 80053; 82728; 83540; 83550; 83735; 85025; 99213

== ENCOUNTER 2024-04-24 12:12 | Outpatient (CLI) | payer MEDICARE, OTHER, SELFPAY ==
--- NOTE | 2024-04-24 12:21 | XR_ITS ---
WS: [id number] Cervical spine, AP view, lateral views in flexion, extension and neutral position, 04/24/2024 Clinical Data: CERVICALGIA Comparison: None. Findings: No compression fractures are seen. There is disc narrowing at C3-C4, C5-C6, C6-C7 and C7-T1 . There are osteophytes at C3-C4, C5-C7. There is 0.3 posterior subluxation of C3 on C4 which reduces on flexion but no change on extension. There is no prevertebral soft tissue swelling. The odontoid i s unremarkable. The soft tissues of the neck and the lung apices are normal. XR/XR cervical spine 4-5V [id number] Impression: 1. Multilevel degenerative disc narrowing and osteoarthritis. 2. 0.3 cm posterior subluxation of C3 on C4 which reduces on flexion.
== END 2024-04-24 12:13 | disposition home or self-care (01) ==
PROVIDERS: PCP Family Medicine; Visit Provider Family Medicine
DX: M50.30 Other cervical disc degeneration, unspecified cervical region (principal); M50.322 Other cervical disc degeneration at C5-C6 level; M50.323 Other cervical disc degeneration at C6-C7 level; M50.33 Other cervical disc degeneration, cervicothoracic region; S13.140A Subluxation of C3/C4 cervical vertebrae, initial encounter; X58.XXXA Exposure to other specified factors, initial encounter
CPT/HCPCS: 72050

== ENCOUNTER 2024-05-19 06:00 | Outpatient (RCR) | payer MEDICARE, OTHER, SELFPAY | END 2024-05-24 23:59 | disposition home or self-care (01) | LOC: APT 06:00 | PROVIDERS: PCP Family Medicine; Visit Provider Family Medicine | DX: M54.2 Cervicalgia (principal) | CPT/HCPCS: 97110; 97161 ==

== ENCOUNTER 2024-05-25 06:00 | Outpatient (RCR) | payer MEDICARE, OTHER, SELFPAY | END 2024-06-24 23:59 | disposition home or self-care (01) | LOC: APT 06:00 | PROVIDERS: PCP Family Medicine; Visit Provider Family Medicine | DX: M54.2 Cervicalgia (principal) | CPT/HCPCS: 97110; 97140; 97530 ==

== ENCOUNTER 2024-06-03 11:31 | Oncology outpatient (recurring) (ONCR) | payer MEDICARE, OTHER, SELFPAY ==
[2024-06-03 11:54] LABS: Basophils # 0.1 10^3/uL (0.0-0.1); Basophils % 0.5 %; Eosinophils # 0.2 10^3/uL (0.0-0.8); Eosinophils % 1.3 %; Hematocrit 41.2 % (37-53); Lymphocytes # 1.3 10^3/uL (0.8-4.8); Lymphocytes % 10.6 %; Mean Corpuscular HGB Conc 34.2 g/dL (30-55); Mean Corpuscular Hemoglobin 31.3 pg (27-33); Mean Corpuscular Volume 91.4 fl (82-101); Mean Platelet Volume 9.5 fL (7.4-10.4); Monocytes # 1.3 10^3/uL (0.2-0.9); Monocytes % 10.5 %; Neutrophils # 9.17 10^3/uL (1.8-7.7); Neutrophils % 76.8 %; Nucleated Red Blood Cells % 0 %; Platelet Count 293 10^3/cmm (157-399); Red Blood Count 4.51 10^6/uL (3.85-5.65); Red Cell Distribution Width 13.4 % (12.1-15.1); White Blood Count 11.96 10^3/uL (3.29-11.43)
[2024-06-03 12:14] LABS: Alanine Aminotransferase 13 U/L (0-41); Albumin Level 3.9 g/dL (3.5-5.2); Alkaline Phosphatase 57 U/L (40-130); Anion Gap 13.3 (5-19); Aspartate Amino Transferase 15 U/L (0-40); Blood Urea Nitrogen 14 mg/dL (8-23); Calcium 9.5 mg/dL (8.5-10.5); Carbon Dioxide 26 mmol/L (22-29); Chloride 100 mmol/L (98-107); Creatinine Clr Calc Pharmacy 74.0086; Glucose 133 mg/dL (65-115); Iron 43 ug/dL (59-158); Osmolality Calculated 284 mOsm/kg (285-295); Percent Saturation 17.2 % (20-50); Potassium 3.3 mmol/L (3.5-5.1); Sodium 136 mmol/L (136-145); Total Bilirubin 0.3 mg/dL (0.15-1.2); Total Iron Binding Capacity 249 mcg/dl; Total Protein 6.9 g/dL (6.6-8.7); Unsaturated Iron Binding 206 ug/dL (112-347)
== END 2024-06-24 23:59 | disposition home or self-care (01) ==
PROVIDERS: Nurse Practitioner Family; PCP Family Medicine; Visit Provider Internal Medicine Hematology & Oncology
DX: D50.8 Other iron deficiency anemias (principal); Z79.899 Other long term (current) drug therapy
CPT/HCPCS: 36415; 80053; 83540; 83550; 85025; 99213